=== PATIENT | female | born 1970 | race Two or more races ===

== ENCOUNTER 2018-09-15 07:45 | Emergency (ER) | payer SELFPAY ==
--- NOTE | 2018-09-15 09:40 | ER Document Report ---
ED Medical Screen (RME) - General Chief Complaint: Vaginal Bleeding Stated Complaint: HEAVY VAGINAL BLEEDING Time Seen by Provider: 09/15/18 09:33 Primary Care Provider: YARON KULKARNI MD [Primary Care Provider] - Follow up as needed Mode of Arrival: Ambulatory Information source: Patient Notes: 48-year-old female presents emergency department with complaints of heavy menstrual bleeding that started yesterday. Patient states that yesterday she went through 2 tampons during the day. She states that around 4 AM she has had increased bleeding. She states that currently she is going through 1 pad every 2 hours. States that she placed a tampon and a pad 2 hours ago and have already soaked both. She does have a history of dysfunctional uterine bleeding. She is not on any medications. Denies any medical problems. I have greeted and performed a rapid initial assessment of this patient. A comprehensive ED assessment and evaluation of the patient, analysis of test results and completion of the medical decision making process will be conducted by additional ED providers. PHYSICAL EXAMINATION: GENERAL: Well-appearing, well-nourished and in no acute distress. HEAD: Atraumatic, normocephalic. EYES: Pupils equal round extraocular movements intact, conjunctiva are normal. ENT: Nares patent NECK: Normal range of motion LUNGS: No respiratory distress Musculoskeletal: Normal range of motion NEUROLOGICAL: Normal speech, normal gait. PSYCH: Normal mood, normal affect. SKIN: Warm, Dry, normal turgor, no rashes or lesions noted. TRAVEL OUTSIDE OF THE [place] IN LAST 30 DAYS: No - Related Data Allergies/Adverse Reactions: No Known Allergies Allergy (Verified 09/15/18 07:50) Past Medical History - General Last Menstrual Period: irregular - Social History Chew tobacco use (# tins/day): No Frequency of alcohol use: Occasional Drug Abuse: None Renal/ Medical History: Denies: Hx Peritoneal Dialysis Past Surgical History: Reports: Hx Orthopedic Surgery, Hx Tubal Ligation Physical Exam - Vital signs Vitals: Temp Pulse Resp BP Pulse Ox 99.0 F 84 18 125/81 95 09/15/18 07:52 09/15/18 07:52 09/15/18 07:52 09/15/18 07:52 09/15/18 07:52 Course - Vital Signs Vital signs: Temp Pulse Resp BP Pulse Ox 99.0 F 84 18 125/81 95 09/15/18 07:52 09/15/18 07:52 09/15/18 07:52 09/15/18 07:52 09/15/18 07:52 Doctor's Discharge - Discharge Referrals: YARON KULKARNI MD [Primary Care Provider] - Follow up as needed
[2018-09-15 10:18] LABS: ABSOLUTE EOSINOPHILS # (AUTO) 0.2 10^3/uL (0.0-0.6); ABSOLUTE LYMPHOCYTES (AUTO) 1.3 10^3/uL (0.5-4.7); ABSOLUTE MONOCYTES (AUTO) 0.5 10^3/uL (0.1-1.4); ABSOLUTE NEUT (AUTO) 4.8 10^3/uL (1.7-8.2); BASOPHILS % (AUTO) 0.7 % (0-2); EOSINOPHILS % (AUTO) 2.4 % (0-6); HEMATOCRIT 44.5 % (36.0-47.0); LYMPHOCYTES % (AUTO) 19.3 % (13-45); MEAN CORPUSCULAR HEMOGLOBIN 28.6 pg (27.0-33.4); MEAN CORPUSCULAR HGB CONC 33.6 g/dL (32.0-36.0); MEAN CORPUSCULAR VOLUME 85 fl (80-97); MONOCYTES % (AUTO) 7.7 % (3-13); PLATELET COUNT 232 10^3/uL (150-450); RED BLOOD COUNT 5.23 10^6/uL (3.72-5.28); RED CELL DISTRIBUTION WIDTH 14.3 % (11.5-14.0); SEGMENTED NEUTROPHILS % (AUTO) 69.9 % (42-78); TOTAL CELLS COUNTED % (AUTO) 100 %; WHITE BLOOD COUNT 6.8 10^3/uL (4.0-10.5)
[2018-09-15 10:21] LABS: INTERNATIONAL RATION (INR) 0.93; PARTIAL THROMBOPLASTIN TIME 28.1 SEC (23.5-35.8); PROTHROMBIN TIME 12.9 SEC (11.4-15.4)
[2018-09-15 10:31] LABS: ALANINE AMINOTRANSFERASE 34 U/L (9-52); ALBUMIN 4.7 g/dL (3.5-5.0); ALKALINE PHOSPHATASE 74 U/L (38-126); ANION GAP 10 (5-19); ASPARTATE AMINO TRANSFERASE 27 U/L (14-36); BILIRUBIN,DIRECT 0.1 mg/dL (0.0-0.4); BILIRUBIN,TOTAL 0.3 mg/dL (0.2-1.3); BLOOD UREA NITROGEN 9 mg/dL (7-20); CALCIUM 9.4 mg/dL (8.4-10.2); CARBON DIOXIDE 27 mmol/L (22-30); CHLORIDE 105 mmol/L (98-107); GLUCOSE 102 mg/dL (75-110); POTASSIUM 4.1 mmol/L (3.6-5.0); SODIUM 141.7 mmol/L (137-145); TOTAL PROTEIN 7.7 g/dL (6.3-8.2)
[2018-09-15 12:36] LABS: APPEARANCE,URINE CLEAR; BILIRUBIN,URINE NEGATIVE (NEGATIVE); COLOR,URINE STRAW; GLUCOSE, URINE NEGATIVE (NEGATIVE); KETONES,URINE NEGATIVE (NEGATIVE); LEUKOCYTE ESTERASE,URINE NEGATIVE (NEGATIVE); NITRITE,URINE NEGATIVE (NEGATIVE); PROTEIN,URINE NEGATIVE (NEGATIVE); URINE SPECIFIC GRAVITY 1.008; UROBILINOGEN,URINE NEGATIVE mg/dL (<2.0)
[2018-09-15 14:13] VITALS: BP 112/62
--- NOTE | 2018-09-15 16:34 | ER Document Report ---
Entered by KOREY DUQUE SCRIBE 09/15/18 1127 Acting as scribe for:CHRISTIANA TUCKER DO ED GI/ - General Chief Complaint: Vaginal Bleeding Stated Complaint: HEAVY VAGINAL BLEEDING Time Seen by Provider: 09/15/18 09:33 Primary Care Provider: JULIETA ANTONIO MD [ACTIVE STAFF] - Follow up in 1 week Mode of Arrival: Ambulatory Information source: Patient Notes: 48-year-old female who presents to the emergency department today with complaints of heavy vaginal bleeding. Patient states she has been bleeding for the last 2 days which became much heavier at 0400 today. Patient states she is soaking through more than 1 pad an hour. Patient has a history of dysfunctional uterine bleeding (4 years ago). Patient states she was seen and "they did nothing it just stopped". Patient is not on any hormones or control. Patient denies any dizziness, lightheadedness, history of cancer or PE/DVT. TRAVEL OUTSIDE OF THE [place] IN LAST 30 DAYS: No - Related Data Allergies/Adverse Reactions: No Known Allergies Allergy (Verified 09/15/18 07:50) Past Medical History - General Information source: Patient Last Menstrual Period: irregular - Social History Smoking Status: Never Smoker Cigarette use (# per day): No Chew tobacco use (# tins/day): No Frequency of alcohol use: Occasional Drug Abuse: None Lives with: Family Family History: Reviewed & Not Pertinent Patient has suicidal ideation: No Patient has homicidal ideation: No Past Surgical History: Reports: Hx Orthopedic Surgery, Hx Tubal Ligation Review of Systems - Review of Systems Constitutional: No symptoms reported EENT: No symptoms reported Cardiovascular: denies: Dizziness, Lightheaded Respiratory: No symptoms reported Gastrointestinal: No symptoms reported Genitourinary: No symptoms reported Female Genitourinary: See HPI, Vaginal bleeding Musculoskeletal: No symptoms reported Skin: No symptoms reported Hematologic/Lymphatic: No symptoms reported Neurological/Psychological: No symptoms reported -: Yes All other systems reviewed and negative Physical Exam - Vital signs Vitals: Temp Pulse Resp BP Pulse Ox 99.0 F 84 18 125/81 95 09/15/18 07:52 09/15/18 07:52 09/15/18 07:52 09/15/18 07:52 09/15/18 07:52 - Notes Notes: PHYSICAL EXAM GENERAL: Alert, interacts well. No acute distress. HEAD: Normocephalic, atraumatic. EYES: Pupils equal, round, and reactive to light. Extraocular movements intact. ENT: Oral mucosa moist, tongue midline. NECK: Full range of motion. Supple. Trachea midline. LUNGS: Clear to auscultation bilaterally, no wheezes, rales, or rhonchi. No respiratory distress. HEART: Regular rate and rhythm. Not tachycardic. No murmurs, gallops, or rubs. ABDOMEN: Soft, very mild lower abdomen tenderness with palpation. Non-distended. Bowel sounds present in all 4 quadrants. No guarding, rigidity, or rebound. EXTREMITIES: Moves all 4 extremities spontaneously. No edema, radial and dorsalis pedis pulses 2/4 bilaterally. No cyanosis. NEUROLOGICAL: Alert and oriented x3. Normal speech. PSYCH: Normal affect, normal mood. SKIN: Warm, dry, normal turgor. No rashes or lesions noted. : Cervical os is closed, small amount of blood in the vaginal vault, no clots in the cervix. Course - Re-evaluation Re-evalutation: 09/15/18 13:43 CBC unremarkable, CMP unremarkable, cardiac enzymes coags normal. test negative, small amount of blood in the cath urine still suspect conta mination. Pelvic examination showed minimal blood, no clots in the cervix. There is no hypotension, tachycardia or anemia. Discussed with Dr. Antonio who states the patient will need a biopsy as an outpatient. Patient will be discharged home, will start Provera 10 mg a day for 10 days. - Vital Signs Vital signs: Temp Pulse Resp BP Pulse Ox 98.0 F 68 18 112/62 98 09/15/18 14:00 09/15/18 14:00 09/15/18 14:00 09/15/18 14:00 09/15/18 14:00 - Laboratory Result Diagrams: 09/15/18 09:49 09/15/18 09:49 Laboratory results interpreted by me: 09/15/18 09/15/18 09:49 12:05 RDW 14.3 H Urine Blood SMALL H Discharge - Discharge Clinical Impression: Dysfunctional uterine bleeding Condition: Stable Disposition: HOME, SELF-CARE Additional Instructions: Menorrhagia You are having severe bleeding from the uterus. We call this menorrhagia. It is most often caused by a hormone imbalance. The lining of the uterus grows too thick, then comes sloughs off with severe bleeding. There's often cramping and passage of clots. Sometimes menorrhagia is caused by benign muscle tumors in the uterus, called fibroids. There's no evidence of miscarriage or tubal . Menorrhagia often has no clear cause. But it's especially common at times when the normal menstrual cycle is disturbed -- whether by recent , use of hormones, or impending menopause. Some medical problems, such as obesity, stress, or thyroid problems make menorrhagia more likely. In many cases, the menstrual cycle will return to normal without treatment. Antiinflammatory pain medicine, like ibuprofen, can decrease cramping. Where the bleeding is significant, high-dose estrogen will usually stop the bleeding withi n a day of two. A cycle or two of hormones ( control pills) can help restore the uterus to normal. In some patients where bleeding is severe or resistant to treatment, a D&C is required. A endometrial biopsy (a sample of the inside of the uterus) may be recommended for some older women. This would be done by a gynecology specialist. Treatment for anemia may be required if bleeding is severe. You should rest and avoid intercourse until the bleeding is controlled. Call the doctor or return for re-examination if you feel faint, have increasing pain, or have a major increase in the amount of bleeding. I spoke with Dr. Antonio, he recommends that you have a biopsy as an outpatient. Please follow-up with [facility] as an outpatient. We are also giving you Provera. This is a hormone that you will take 1 tablet once a day for 10 days. It will help to stop your bleeding. Prescriptions: Medroxyprogesterone Acet [Provera 10 Mg Tablet] 10 mg PO DAILY #10 tablet Forms: Return to Work Referrals: JULIETA ANTONIO MD [ACTIVE STAFF] - Follow up in 1 week Scribe Attestation: 09/15/18 16:34 I personally performed the services described in the documentation, reviewed and edited the documentation which was dictated to the scribe in my presence, and it accurately records my words and actions. I personally performed the services described in the documentation, reviewed and edited the documentation which was dictated to the scribe in my presence, and it accurately records my words and actions.
== END 2018-09-15 14:13 | disposition home or self-care (01) ==
LOC: ER 07:45
DX: N93.8 Other specified abnormal uterine and vaginal bleeding (principal); Z98.51 Tubal ligation status
CPT/HCPCS: 36415; 51701; 80053; 81001; 81025; 84703; 85025; 85610; 85730; 99284

== ENCOUNTER 2020-01-04 21:44 | Emergency (ER) | payer BC ==
[2020-01-04] MEDS ORDERED: ONDANSETRON 4 MG TAB.RAPDIS PO ONE (23:15)
[2020-01-04] MEDS ORDERED: OXYCODONE-ACETAMINOPHEN 5-325 MG TABLET PO ONE (23:15)
--- NOTE | 2020-01-04 23:20 | ER Document Report ---
ED Medical Screen (RME) - General Stated Complaint: RIGHT SHOLDER DISLOCATION Time Seen by Provider: 01/04/20 23:14 Notes: 49-year-old female chief complaint of slipping in the shower and falling on her right shoulder with her arm tucked by her side. She states that she has shooting pain and is unable to move it, she thinks she dislocated it. She is also starting to get some tingling sensation in the arm. She denies head injury, alcohol use, blood thinner use, loss of consciousness, or any other complaints. TRAVEL OUTSIDE OF THE [place] IN LAST 30 DAYS: No - Related Data Allergies/Adverse Reactions: No Known Allergies Allergy (Verified 09/15/18 07:50) Past Medical History Renal/ Medical History: Denies: Hx Peritoneal Dialysis Past Surgical History: Reports: Hx Orthopedic Surgery, Hx Tubal Ligation Physical Exam - Vital signs Vitals: Temp Pulse Resp BP Pulse Ox 99.1 F 85 16 145/87 H 98 01/04/20 21:49 01/04/20 21:49 01/04/20 21:49 01/04/20 21:49 01/04/20 21:49 - General General appearance: No: Appears well - Appears to be in pain, grimacing - Extremities General upper extremity: Other - Very tender over the right humeral head, questionable dislocation, unable to lift the right arm at all. Marble Rubber intact, sensation and cap refill intact, radial pulse intact. Course - Re-evaluation Re-evalutation: Distal sensation and electromedical service engineer intact, unable to lift the shoulder, based on physical exam questionable shoulder dislocation, upgraded to triage level 2. I have greeted and performed a rapid initial assessment of this patient. A comprehensive ED assessment and evaluation of the patient, analysis of test results and completion of the medical decision making process will be conducted by additional ED providers. - Vital Signs Vital signs: Temp Pulse Resp BP Pulse Ox 99.1 F 85 16 145/87 H 98 01/04/20 21:49 01/04/20 21:49 01/04/20 21:49 01/04/20 21:49 01/04/20 21:49
--- NOTE | 2020-01-05 00:18 | RADIOLOGY REPORT (SQ) ---
EXAM DESCRIPTION: XR SHOULDER 2 OR MORE VIEWS COMPLETED DATE/TME: 01/04/2020 23:15 CLINICAL HISTORY: 49 years, Female, fall on shoulder, ? dislocation COMPARISON: None. NUMBER OF VIEWS: 2 TECHNIQUE: 2 view right shoulder LIMITATIONS: None. FINDINGS: Anterior inferior dislocation of the humerus. No acute fracture. AC joint intact IMPRESSION: Anterior, inferior shoulder dislocation copyright 2010 [employer]- All Rights Reserved
[2020-01-05] MEDS ORDERED: PROPOFOL INJ 200 MG/20 ML VIAL IV ONE ×2 (00:25→02:43)
--- NOTE | 2020-01-05 01:12 | ER Document Report ---
ED General - General Information source: Patient TRAVEL OUTSIDE OF THE [place] IN LAST 30 DAYS: No - HPI Onset: Just prior to arrival Onset/Duration: Sudden Quality of pain: Fullness, Throbbing Severity: Severe Pain Level: 5 Associated symptoms: None Exacerbated by: Movement - of her right shoulder Relieved by: Remaining still Similar symptoms previously: No Recently seen / treated by doctor: No <JOSEPHBLAKE Boyce - Last Filed: 01/05/20 02:39> <NKECHI TURNER - Last Filed: 01/05/20 02:58> - General Chief Complaint: Shoulder Injury Stated Complaint: RIGHT SHOLDER DISLOCATION Time Seen by Provider: 01/04/20 23:14 Primary Care Provider: DEV CNOTRERAS PA-C [Primary Care Provider] - Follow up as needed SOM GLASS JR, DO [ACTIVE PROVISIONAL STAFF] - Follow up as needed - HPI Notes: 53 year old female with no significant PMH here in the ER for right shoulder pain and deformity after slipping in her bathroom and landing on her right shoulder. The patient is not able to move her right shoulder much. The patient had an Xray of her right shoulder prior to me seeing her and she has a dislocated right shoulder. (JOSEPHBLAKE Boyce) - Related Data Allergies/Adverse Reactions: No Known Allergies Allergy (Verified 09/15/18 07:50) Past Medical History - General Information source: Patient - Social History Smoking Status: Never Smoker Frequency of alcohol use: Occasional Drug Abuse: None Family History: Reviewed & Not Pertinent Patient has homicidal ideation: No Renal/ Medical History: Denies: Hx Peritoneal Dialysis Past Surgical History: Reports: Hx Orthopedic Surgery, Hx Tubal Ligation <JOSEPHBLAKE Boyce - Last Filed: 01/05/20 02:39> Review of Systems - Review of Systems Constitutional: No symptoms reported EENT: No symptoms reported Cardiovascular: No symptoms reported Respiratory: No symptoms reported Gastrointestinal: No symptoms reported Genitourinary: No symptoms reported Female Genitourinary: No symptoms reported Musculoskeletal: Other - right shoulder pain and deformity with decreased ROM Skin: No symptoms reported Hematologic/Lymphatic: No symptoms reported Neurological/Psychological: No symptoms reported -: Yes All other systems reviewed and negative <BLAKE DASH - Last Filed: 01/05/20 02:39> Physical Exam <BLAKE DASH - Last Filed: 01/05/20 02:39> - Vital signs Vitals: Temp Pulse Resp BP Pulse Ox 99.1 F 85 16 145/87 H 98 01/04/20 21:49 01/04/20 21:49 01/04/20 21:49 01/04/20 21:49 01/04/20 21:49 - Notes Notes: GENERAL: Well-appearing, well-nourished and but in moderate distress due to right shoulder pain HEAD: Atraumatic, normocephalic. EYES: Pupils equal round and reactive to light, extraocular movements intact, sclera anicteric, conjunctiva are normal. ENT: TMs normal, nares patent, oropharynx clear without exudates. Moist mucous membranes. NECK: Normal range of motion, supple without lymphadenopathy or JVD. LUNGS: Breath sounds clear to auscultation bilaterally and equal. No wheezes rales or rhonchi. HEART: Regular rate and rhythm without murmurs, rubs or gallops. ABDOMEN: Soft, nontender, normoactive bowel sounds. No guarding, no rebound. No masses appreciated. EXTREMITIES: Right shoulder deformity with pain. Decreased ROM due to pain in right shoulder. No pitting or edema. No clubbing or cyanosis. NEUROLOGICAL: Cranial nerves II through XII grossly intact. Normal speech, normal gait. PSYCH: Normal mood, normal affect. SKIN: Warm, Dry, normal turgor, no rashes or lesions noted. (BLAKE DASH) Course - Diagnostic Test Radiology reviewed: Image reviewed, Reports reviewed <BLAKE DASH - Last Filed: 01/05/20 02:39> - Re-evaluation Re-evalutation: 01/05/20 01:13 The patient has a right shoulder dislocation. Plan to consciously sedate with propfol and perform a closed reduction. 01/05/20 02:36 The patient had conscious sedation performed by Dr. Turner and I performed the closed reduction. The patient required several re-doses of propofol to get adequate sedation. Several reduction attempts were made with manipulation and traction counter traction. When the patient was full relaxed her shoulder finally able to be reduced. Post reduction films showed joint reduced with no fractures. (BLAKE DASH) - Vital Signs Vital signs: Temp Pulse Resp BP Pulse Ox 99.1 F 85 17 119/80 97 01/04/20 23:26 01/05/20 02:36 01/05/20 02:41 01/05/20 02:41 01/05/20 02:41 Procedures - Joint Reduction/Fracture Care Right Shoulder Consent obtained: Yes Conscious sedation: Yes - see sedation procedure note Pre-procedure NV exam: Yes Post-procedure NV exam: Yes Post-reduction x-ray: Joint reduced Reduction attempts: 3 - Multiple attempts made likely due to inadequate sedation Complications: No <BLAKE DASH - Last Filed: 01/05/20 02:39> - Conscious Sedation Conscious sedation Consent obtained: Yes Indication: Right shoulder reduction Pt with a mild systemic disease.: P2. - ASA Classification. Airway Evaluation: Obese I personally performed/intraservice time: Sedation, 30 min or less <NKECHI TURNER - Last Filed: 01/05/20 02:58> - Conscious Sedation Conscious sedation Notes: The patient was seen and examined. Indication for sedation was explained in great detail. Consent was signed and placed on the chart. She is Mallampati 2 Timeout was performed. Patient was placed on a aircraft body repairer, oxygen per nasal cannula. She was administered propofol by this physician. She received a total of 200 mg of propofol, given in increments. At one point she did become mildly hypotensive, IV normal saline was started. Patient became normotensive rapidly. Shoulder was successfully reduced by Dr. Dash. Patient's oxygenation remained above 96% throughout the entire procedure. She tolerated this well. No complications. Procedural time was approximately 20 minutes. (NKECHI TURNER) Discharge <DASHBLAKE Austen - Last Filed: 01/05/20 02:39> <NKECHI TURNER - Last Filed: 01/05/20 02:58> - Discharge Clinical Impression: Shoulder dislocation Qualifiers: Encounter type: initial encounter Laterality: right Qualified Code(s): S43.004A - Unspecified dislocation of right shoulder joint, initial encounter Condition: Stable Disposition: HOME, SELF-CARE Additional Instructions: You had a shoulder dislocation which was reduced in the ER under sedation. Keep the sling on your right shoulder for the next several weeks until cleared by Orthopedics. Follow up with Dr. Glass or another Orthopedic Surgeon. Use tylenol and motrin for pain. Referrals: DEV CONTRERAS PA-C [Primary Care Provider] - Follow up as needed SOM GLASS JR, DO [ACTIVE PROVISIONAL STAFF] - Follow up as needed
--- NOTE | 2020-01-05 03:07 | RADIOLOGY REPORT (SQ) ---
EXAM DESCRIPTION: Right shoulder [facility]: XR SHOULDER 1 VIEW CLINICAL HISTORY: 49 years Female; POST REDUCTION; COMPARISON: 12/27/2019 at 2359 IMPRESSION: 1. Glenohumeral joint is now in anatomic alignment.
[2020-01-05 03:19] VITALS: BP 122/65
== END 2020-01-05 03:19 | disposition home or self-care (01) ==
LOC: ER 21:44
PROC: 0RSJXZZ Reposition Right Shoulder Joint, External Approach (ICD-10-PCS; principal; 2020-01-04)
DX: S43.004A Unspecified dislocation of right shoulder joint, initial encounter (principal); M25.511 Pain in right shoulder; W01.0XXA Fall on same level from slipping, tripping and stumbling without subsequent striking against object, initial encounter; Y93.9 Activity, unspecified; Y92.002 Bathroom of unspecified non-institutional (private) residence as the place of occurrence of the external cause
CPT/HCPCS: 99283; 99152; 73020; 73030; 23650; S0119; J2704

== ENCOUNTER 2020-07-30 08:50 | Emergency (ER) | payer SELFPAY ==
[2020-07-30 10:04] LABS: APPEARANCE,URINE SLIGHTLY-CLOUDY; BILIRUBIN,URINE NEGATIVE (NEGATIVE); COLOR,URINE STRAW; GLUCOSE, URINE NEGATIVE (NEGATIVE); KETONES,URINE NEGATIVE (NEGATIVE); LEUKOCYTE ESTERASE,URINE NEGATIVE (NEGATIVE); NITRITE,URINE NEGATIVE (NEGATIVE); PROTEIN,URINE NEGATIVE (NEGATIVE); URINE SPECIFIC GRAVITY 1.008; UROBILINOGEN,URINE NEGATIVE mg/dL (<2.0)
--- NOTE | 2020-07-30 12:25 | ER Document Report ---
ED General - General Chief Complaint: Low Back Pain Stated Complaint: LOW BACK PAIN Time Seen by Provider: 07/30/20 12:06 Primary Care Provider: DEV CONTRERAS PA-C [Primary Care Provider] - Follow up as needed Mode of Arrival: Ambulatory Information source: Patient TRAVEL OUTSIDE OF THE [place] IN LAST 30 DAYS: No - HPI Notes: Patient complains of lower back pain. It is bilateral in the lumbar area. She states it feels similar to when she had a urinary tract infection previously. Although she stated to the nurse that she had some discomfort with urination she denied this to me. She denies any vaginal symptoms. No abdominal pain. No nausea or vomiting. Patient denies any known injury. No fevers. The pain is an ache and its moderate in intensity. Is constant. It is worse with movement and better with rest. No significant radiation. - Related Data Allergies/Adverse Reactions: No Known Allergies Allergy (Verified 07/30/20 09:06) Past Medical History - General Information source: Patient - Social History Smoking Status: Never Smoker Chew tobacco use (# tins/day): No Frequency of alcohol use: None Drug Abuse: None Family History: Reviewed & Not Pertinent Renal/ Medical History: Denies: Hx Peritoneal Dialysis Past Surgical History: Reports: Hx Orthopedic Surgery, Hx Tubal Ligation Review of Systems - Review of Systems Constitutional: denies: Chills, Fever Cardiovascular: denies: Chest pain, Palpitations Respiratory: denies: Cough, Short of breath -: Yes All other systems reviewed and negative Physical Exam - Vital signs Vitals: Temp Pulse Resp BP Pulse Ox 98.1 F 61 14 122/66 97 07/29/20 08:54 07/29/20 08:54 07/29/20 08:54 07/29/20 08:54 07/29/20 08:54 Interpretation: Normal - General General appearance: Appears well, Alert - HEENT Head: Normocephalic, Atraumatic Eyes: Normal Pupils: PERRL - Respiratory Respiratory status: No respiratory distress Chest status: Nontender Breath sounds: Normal Chest palpation: Normal - Cardiovascular Rhythm: Regular Heart sounds: Normal auscultation Murmur: No - Abdominal Inspection: Normal Distension: No distension Bowel sounds: Normal Tenderness: Nontender Organomegaly: No organomegaly - Back Back: Tender - Patient has some mild diffuse tenderness to lumbar area on palpation. Inspection is normal. - Extremities General upper extremity: Normal inspection, Nontender, Normal color, Normal ROM, Normal temperature General lower extremity: Normal inspection, Nontender, Normal color, Normal ROM, Normal temperature, Normal weight bearing. No: Iris's sign - Neurological Neuro grossly intact: Yes Cognition: Normal Orientation: AAOx4 Marcell Coma Scale Eye Opening: Spontaneous Marcell Coma Scale Verbal: Oriented Karla Coma Scale Motor: Obeys Commands Marcell Coma Scale Total: 15 Speech: Normal Motor strength normal: LUE, RUE, LLE, RLE Sensory: Normal - Psychological Associated symptoms: Normal affect, Normal mood - Skin Skin Temperature: Warm Skin Moisture: Dry Skin Color: Normal Course - Re-evaluation Re-evalutation: 07/30/20 12:22 Patient presents with low back pain however there is no sciatic or radicular symptoms. She has no numbness. She has no problems with urination or bowel movements. Patient states that it feels similar to her previous urinary tract infection however she has no evidence of urinary tract infection on laboratories. She has no tenderness over the bladder area or any other type of abdominal tenderness. At this time I believe the best course is to treat this as a muscle strain and have her follow-up with her family physician. - Vital Signs Vital signs: Temp Pulse Resp BP Pulse Ox 98.1 F 61 14 122/66 97 07/29/20 08:54 07/29/20 08:54 07/29/20 08:54 07/29/20 08:54 07/29/20 08:54 - Laboratory Results Critical Laboratory Results Reviewed: No Critical Results - Radiology Results Critical Radiology Results Reviewed: No Critical Results Discharge - Discharge Clinical Impression: Acute lumbar myofascial strain Qualifiers: Encounter type: initial encounter Qualified Code(s): S39.012A - Strain of muscle, fascia and tendon of lower back, initial encounter Condition: Stable Disposition: HOME, SELF-CARE Instructions: Low Back Pain ([facility]), Oral Narcotic Medication ([facility]), Warm Packs ([facility]) Additional Instructions: Please call your primary care physician to arrange follow-up soon as possible Prescriptions: Tramadol HCl [Ultram] 50 mg PO Q6 PRN 3 Days #12 tablet PRN Reason: For Pain Forms: Return to Work Referrals: DEV CONTRERAS PA-C [Primary Care Provider] - Follow up in 1 week
[2020-07-30 12:34] VITALS: BP 122/82
== END 2020-07-30 12:34 | disposition home or self-care (01) ==
LOC: ER 08:50
DX: S39.012A Strain of muscle, fascia and tendon of lower back, initial encounter (principal); Z87.440 Personal history of urinary (tract) infections; X58.XXXA Exposure to other specified factors, initial encounter
CPT/HCPCS: 81001; 87086; 87088; 99283